=== PATIENT | male | born 1970 | race African-American/Black ===

== ENCOUNTER 2016-05-15 05:47 | Emergency (ER) | payer OTHER ==
--- NOTE | ~2016-05-15 | CR63 ---
[facility] A Service of [facility] RADIOLOGY TEXT RESULTS PATIENT: SCOTT MAN LOCATION: [facility] : 74 UNIT #: [id number] AGE: [address]: Manolo Desai SEX: M ORDER DR: [id number] [facility] [address] [place], [place] [address] [id number] MR#: [id number] Acc #: [id number] NAME: SCOTT MAN : 1970 SEX: M STUDY DATE/TIME: 05/15/2016 5:56 UNIT: [facility] ROOM: STUDY DESCRIPTION: CR Chest 2 View Attending Physician: Manolo Desai P.A.-C. Ordering Physician: Manolo Desai P.A.-C. Primary Care Physician: No Primary Care Physician MEDICAL IMAGING REPORT This report is preliminary unless electronic signature is present EXAM 2 view chest 05/15/2016 HISTORY 45-year-old male with cough and congestion for 2 - 3 days COMPARISON None. FINDINGS 2 views of the chest demonstrate clear lungs. No pleural effusion or pneumothorax. Heart size and mediastinum are normal. Pulmonary vasculature normal. IMPRESSION No acute cardiopulmonary findings Dictated by... Roger Suresh M.D. THIS IS AN ELECTRONICALLY VERIFIED REPORT Roger Suresh M.D. at 05/17/2016 8:26 AM KYRA/myla TD: 05/16/2016 08:38 JOB #: [id number] MEDICAL IMAGING REPORT Page 1 of 1 COPY
[~2016-05-15 05:47] MED LIST: ALBUTEROL17 GM INH; KETOPROFEN PO
== END 2016-05-15 06:39 | disposition home or self-care (01) ==
LOC: CED 05:47
DX: J45.901 Unspecified asthma with (acute) exacerbation (principal); F17.210 Nicotine dependence, cigarettes, uncomplicated
CPT/HCPCS: 71020; 94640; 99283